=== PATIENT | male | born 1990 | race Caucasian/White ===

== ENCOUNTER 2021-06-20 13:10 | Emergency (ER) | payer OTHER ==
[~2021-06-20] VITALS: Ht 172.7 cm; Wt 86.2 kg
[2021-06-20 13:59] LABS: URINE BILIRUBIN NEGATIVE (Negative); URINE BLOOD 3+ (Negative); URINE CLARITY CLEAR; URINE COLOR YELLOW; URINE GLUCOSE-RANDOM NEGATIVE (Negative); URINE KETONES NEGATIVE (Negative); URINE LEUKOCYTES-REFLEX NEGATIVE (Negative); URINE NITRITE-REFLEX NEGATIVE (Negative); URINE PROTEIN NEGATIVE (Negative); URINE SPECIFIC GRAVITY >= 1.030 (1.005-1.030)
[2021-06-20 14:04] LABS: BACTERIA-REFLEX 1-9 Few /HPF (None Seen); CASTS None Seen /LPF (None Seen); CRYSTALS None Seen /LPF (None Seen); MUCUS >6 Heavy strn/LPF (None Seen); SQUAMOUS 4-10 Moderate /LPF (0-3); URINE WBC-REFLEX 0-5 Rare /HPF (0-5)
[2021-06-20 14:41] LABS: ABSOLUTE BASOPHILS 0.1 thou/uL (0.0-0.2); ABSOLUTE EOSINOPHILS 0.2 thou/uL (0.0-0.7); ABSOLUTE MONOCYTES 1.4 thou/uL (0.0-1.2); ABSOLUTE NEUTROPHILS 8.6 thou/uL (1.6-8.1); BASOPHILS 0.6 %; EOSINOPHILS 1.5 %; HEMATOCRIT 44.8 % (42.0-52.0); HEMOGLOBIN 15.7 gm/dL (14.0-18.0); LYMPHOCYTES 22.8 %; MCH 30.9 pg (26.0-34.0); MCHC 35.1 g/dL (28.0-37.0); MCV 87.9 fL (80.0-100.0); MONOCYTES 10.4 %; NUCLEATED RBCS 0 /100WBC; PLATELET COUNT* 242 thou/uL (150-400); POLYS 64.7 %; RBC 5.09 mil/uL (4.50-6.00); RDW-CV 12.6 % (10.5-14.5); WBC 13.3 thou/uL (4.0-11.0)
[2021-06-20 14:46] LABS: CALCIUM 9.1 mg/dL (8.5-10.1); POTASSIUM 3.9 mmol/L (3.5-5.1)
[2021-06-20 14:50] LABS: ALBUMIN 4.3 g/dL (3.4-5.0); TOTAL BILIRUBIN 0.8 mg/dL (<0.1-1.0); TOTAL PROTEIN 7.8 g/dL (6.4-8.2)
[2021-06-20] MEDS ORDERED: CIPRO500 M1 PO (15:57)
[2021-06-20] MEDS ORDERED: FLAGYL500 M1 PO (15:57)
[2021-06-20] MEDS ORDERED: HYDROCODON-ACE1 EAC7 PO (15:57)
[2021-06-20 16:11] VITALS: BP 142/104
== END 2021-06-20 16:11 | disposition home or self-care (01) ==
LOC: M.ERS 13:10
PROVIDERS: Nurse Practitioner Family
DX: K57.32 Diverticulitis of large intestine without perforation or abscess without bleeding (principal)

== ENCOUNTER → 2021-08-11 | Outpatient (CLI) | payer OTHER ==
[~2021-08-11] MED LIST: CIPRO500 M1 PO; FLAGYL500 M1 PO; HYDROCODON-ACE1 EAC7 PO
== END ==
LOC: M.CT 13:15
PROVIDERS: ATTEND Nurse Practitioner Family
DX: Z13.6 Encounter for screening for cardiovascular disorders (principal); I25.10 Atherosclerotic heart disease of native coronary artery without angina pectoris

== ENCOUNTER → 2021-10-17 | Outpatient (CLI) | payer OTHER | LOC: M.CT 07:53 | PROVIDERS: ATTEND Nurse Practitioner Family | DX: K57.92 Diverticulitis of intestine, part unspecified, without perforation or abscess without bleeding (principal); R10.811 Right upper quadrant abdominal tenderness ==

== ENCOUNTER 2021-12-25 15:16 | Emergency (ER) | payer OTHER ==
[~2021-12-25] VITALS: Ht 172.7 cm; Wt 81.7 kg
[2021-12-25 16:27] LABS: HEMATOCRIT 44.4 % (42.0-52.0); HEMOGLOBIN 15.2 gm/dL (14.0-18.0); MCH 29.7 pg (26.0-34.0); MCHC 34.1 g/dL (28.0-37.0); MCV 87.1 fL (80.0-100.0); MPV 8.6 fl. (7.2-11.1); NUCLEATED RBCS 0 /100WBC; PLATELET COUNT* 214 thou/uL (150-400); RDW-CV 12.3 % (10.5-14.5); WBC 18.1 thou/uL (4.0-11.0)
[2021-12-25 16:37] LABS: CALCIUM 8.5 mg/dL (8.5-10.1); CREATININE 0.9 mg/dL (0.6-1.3); POTASSIUM 3.3 mmol/L (3.5-5.1)
[2021-12-25 16:42] LABS: ALBUMIN 4.1 g/dL (3.4-5.0); TOTAL BILIRUBIN 0.7 mg/dL (<0.1-1.0)
[2021-12-25 16:58] LABS: ABSOLUTE LYMPHOCYTES 1.1 thou/uL (0.8-5.3); ABSOLUTE MONOCYTES 1.1 thou/uL (0.0-1.2); ABSOLUTE NEUTROPHILS 15.9 thou/uL (1.6-8.1)
[2021-12-25 16:59] LABS: PLATELET ESTIMATE ADEQUATE
--- NOTE | 2021-12-25 17:02 | EKG ---
[place] [address] ELECTROCARDIOGRAM REPORT Name: LIDIA NASCIMENTO Room: [facility]#: [id number] Admission: Attend Phys: Discharge: Date of : 89 Date of Service: 12/25/211609 Report #: [id number] THIS REPORT FOR: //name// [facility] ED Test Date: 2021-12-25 Test Time: 16:10:46 Pat Name: LIDIA PILY Department: Room: Gender: Body Mechanic: : 1990 Requested By: Tigist Dawkins Order Number: [id number] MD: Terence Herron Measurements Intervals Radiant Rate: 93 P: 79 ND: 126 QRS: 67 QRSD: 97 T: 44 QT: 339 QTc: 422 Interpretive Statements Sinus arrhythmia No previous ECG available for comparison Electronically Signed On 12-25-2021 17:01:54 [employer] by Terence Herron [email or web address] <ELECTRONICALLY SIGNED> By: Terence Herron MD, [facility] 12/25/21 170 09 1610 Terence Herron MD, FACC /EPI
[2021-12-25] MEDS ORDERED: ZOFRAN ODT4 MG PO (18:55)
[2021-12-25] MEDS ORDERED: DICYCLOMINE HCL20 MG PO (18:55)
[2021-12-25 19:23] VITALS: BP 127/71
[2021-12-25 19:32] LABS: URINE BILIRUBIN NEGATIVE (Negative); URINE BLOOD 1+ (Negative); URINE COLOR YELLOW; URINE GLUCOSE-RANDOM NEGATIVE (Negative); URINE KETONES 2+ (Negative); URINE LEUKOCYTES-REFLEX NEGATIVE (Negative); URINE NITRITE-REFLEX NEGATIVE (Negative); URINE PROTEIN NEGATIVE (Negative); URINE SPECIFIC GRAVITY <= 1.005 (1.005-1.030); URINE UROBILINOGEN 0.2 E.U./dl (0.2-1.0)
[2021-12-25 19:35] LABS: URINE CLARITY HAZY
[2021-12-25 19:37] LABS: BACTERIA-REFLEX None Seen /HPF (None Seen); CASTS None Seen /LPF (None Seen); CRYSTALS None Seen /LPF (None Seen); SQUAMOUS 0-3 Few /LPF (0-3); URINE RBC 0-2 Rare /HPF (0-2); URINE WBC-REFLEX None Seen /HPF (0-5)
== END 2021-12-25 19:24 | disposition home or self-care (01) ==
LOC: M.ERS 15:16
PROVIDERS: Family Medicine; Nurse Practitioner Family
DX: R42 Dizziness and giddiness (principal); R11.2 Nausea with vomiting, unspecified; R68.83 Chills (without fever); Z91.048 Other nonmedicinal substance allergy status; Z98.890 Other specified postprocedural states